=== PATIENT | female | born 1990 | race Caucasian/White ===

== ENCOUNTER 2022-07-06 18:45 | Inpatient (IN) | payer OTHER ==
[2022-07-06] MEDS ORDERED: IBUPROFEN 600 MG TABLET (FP) PO PRN (21:53)
[2022-07-06] MEDS ORDERED: P-EPHED 60MG/TRIPROLIDI 2.5MG TABLET PO PRN (21:53)
[2022-07-06] MEDS ORDERED: MAGNESIUM HYDROX 2400MG/30ML ORAL SUSPENSION 30 ML CUP PO PRN (21:53)
[2022-07-06] MEDS ORDERED: ACETAMINOPHEN 325 MG TABLET (FP) PO PRN ×2 (21:53)
[2022-07-06] MEDS ORDERED: IBUPROFEN 400 MG TABLET (FP) PO PRN (21:53)
[2022-07-06] MEDS ORDERED: POLYETHYLENE GLYCOL (HEALTHYLAX) 3350 17 GM PACKET PO PRN (21:53)
[2022-07-06] MEDS ORDERED: DICYCLOMINE HCL 10 MG CAPSULE PO PRN (21:53)
[2022-07-06] MEDS ORDERED: NICOTINE 10 MG CARTRIDGE (INHALER) IH PRN (21:53)
[2022-07-06] MEDS ORDERED: BENZONATATE 200 MG CAPSULE PO PRN (21:53)
[2022-07-06] MEDS ORDERED: NICOTINE POLACRILEX 2 MG GUM BUC PRN (21:53)
[2022-07-06] MEDS ORDERED: BISMUTH SUBSALICYLATE 524 MG/30 ML PO PRN (21:53)
[2022-07-06] MEDS ORDERED: NALOXONE HCL (KLOXXADO) 8 MG SPRAY NS PRN (21:53)
[2022-07-06] MEDS ORDERED: NALOXONE HCL 0.4 MG/ML VIAL IM PRN (21:53)
[2022-07-06] MEDS ORDERED: guaiFENesin 600 MG TABLET.ER (FP) PO PRN (21:53)
[2022-07-06] MEDS ORDERED: MAG HYDROX/AL HYDROX/SIMETH 30 ML UNIT-DOSE CUP PO PRN (21:53)
[2022-07-06] MEDS ORDERED: ONDANSETRON *ODT* 4 MG TABLET SL PRN (21:53)
[2022-07-06] MEDS ORDERED: LOPERAMIDE HCL 2 MG CAPSULE PO PRN (21:53)
[2022-07-06] MEDS ORDERED: cloNIDine HCL 0.1 MG TABLET PO PRN (21:59)
[2022-07-06] MEDS ORDERED: PRENATAL VITAMINS W/ FOLIC ACID TABLET (FP) PO ONE (22:42)
[2022-07-06] MEDS ORDERED: methaDONE HCL 10 MG TABLET (FOR DETOX USE ONLY) ONE (22:43)
[2022-07-06] MEDS ORDERED: methaDONE HCL 10 MG TABLET (FOR DETOX USE ONLY) PO ONE (23:00)
[2022-07-06] MEDS: THIAMINE HCL 100 MG TABLET (FP) PO SCH (23:15)
[2022-07-07] MEDS ORDERED: methaDONE HCL 10 MG TABLET (FOR DETOX USE ONLY) ONE (10:50)
[2022-07-07] MEDS ORDERED: PRENATAL VITAMINS W/ FOLIC ACID TABLET (FP) PO ONE (10:51)
[2022-07-07] MEDS: PRENATAL VITAMINS W/ FOLIC ACID TABLET (FP) PO SCH (10:55)
[2022-07-07] MEDS ORDERED: diazePAM 5 MG TABLET ONE (10:57)
[2022-07-07] MEDS: diazePAM 5 MG TABLET PO PRN ×2 (10:57→17:43)
[2022-07-07 11:48] LABS: HEMATOCRIT 36.2 % (32.4-45.2); HEMOGLOBIN 12.4 GM/dL (10.7-15.3); MCH 30.2 pg (25.7-33.7); MCHC 34.2 g/dl (32.0-36.0); MEAN CELL VOLUME 88.2 fl (80-96); MEAN PLT VOLUME 8.3 fl (7.5-11.1); PLATELET COUNT 171 10^3/uL (134-434); RDW 13.3 % (11.6-15.6); WHITE BLOOD COUNT 6.2 K/mm3 (4.0-10.0)
[2022-07-07 11:56] LABS: POTASSIUM 4.5 mmol/L (3.5-5.1)
[2022-07-07 12:09] LABS: CALCIUM 9.2 mg/dL (8.5-10.1)
[2022-07-07 12:10] LABS: ALBUMIN 3.6 g/dl (3.4-5.0); BLOOD UREA NITROGEN 16.4 mg/dL (7-18); CREATININE 0.7 mg/dL (0.55-1.3)
[2022-07-07 12:11] LABS: TOT PROT 6.5 g/dl (6.4-8.2)
[2022-07-07 12:12] LABS: BILIRUBIN,TOTAL 0.4 mg/dL (0.2-1)
[2022-07-07] MEDS: hydrOXYzine PAMOATE 25 MG CAPSULE (FP) PO PRN (17:43)
[2022-07-07] MEDS: METHOCARBAMOL 500 MG TABLET PO PRN (17:43)
[2022-07-07] MEDS: MELATONIN 5 MG TABLETS PO PRN (22:03)
[2022-07-07] MEDS: THIAMINE HCL 100 MG TABLET (FP) PO SCH (22:03)
[2022-07-08] MEDS ORDERED: methaDONE HCL 10 MG TABLET (FOR DETOX USE ONLY) PO ONE (10:00)
[2022-07-08] MEDS: diazePAM 5 MG TABLET PO PRN ×3 (10:27→18:49)
[2022-07-08] MEDS: PRENATAL VITAMINS W/ FOLIC ACID TABLET (FP) PO SCH (10:27)
[2022-07-08] MEDS: BENZOCAINE/MENTHOL (CHLORASEPTIC ) LOZENGE MM PRN ×3 (10:28→22:32)
[2022-07-08] MEDS: hydrOXYzine PAMOATE 25 MG CAPSULE (FP) PO PRN (18:05)
[2022-07-08] MEDS: THIAMINE HCL 100 MG TABLET (FP) PO SCH (22:32)
[2022-07-08] MEDS: MELATONIN 5 MG TABLETS PO PRN (22:32)
[2022-07-08] MEDS: METHOCARBAMOL 500 MG TABLET PO PRN (22:34)
[2022-07-09] MEDS: diazePAM 5 MG TABLET PO PRN (08:41)
[2022-07-09 09:35] VITALS: BP 131/75; PULSE 73; RESP 18; TEMP 98.1
[2022-07-09] MEDS: METHOCARBAMOL 500 MG TABLET PO PRN (10:05)
[2022-07-09] MEDS: BENZOCAINE/MENTHOL (CHLORASEPTIC ) LOZENGE MM PRN (10:07)
[2022-07-09] MEDS: PRENATAL VITAMINS W/ FOLIC ACID TABLET (FP) PO SCH (10:08)
[2022-07-10] MEDS ORDERED: methaDONE HCL 10 MG TABLET (FOR DETOX USE ONLY) PO ONE (10:00)
== END 2022-07-09 12:10 | disposition left against medical advice (07) | DRG 770 ==
LOC: YASAS 18:45 → Y6N 07-07 16:31
PROVIDERS: ADMIT Allergy & Immunology; ATTEND Surgery
PROC: HZ2ZZZZ Detoxification Services for Substance Abuse Treatment (ICD-10-PCS; principal; 2022-07-07)
DX: F11.23 Opioid dependence with withdrawal (principal); F10.10 Alcohol abuse, uncomplicated; F17.210 Nicotine dependence, cigarettes, uncomplicated; F20.9 Schizophrenia, unspecified; F31.9 Bipolar disorder, unspecified; F41.9 Anxiety disorder, unspecified; Z86.19 Personal history of other infectious and parasitic diseases
CPT/HCPCS: 36415; 80053; 81025; 85027; 86780; 87811; 93005; 93010; C9803-CS; U0003; U0005